=== PATIENT | female | born 1975 | race Caucasian/White ===

== ENCOUNTER 2022-08-21 14:24 | Outpatient (CLI) | payer BC | END 2022-08-21 14:25 | disposition home or self-care (01) | LOC: CSHULT 14:24 | PROVIDERS: ATTEND Psychiatry & Neurology Neurology | DX: R55 Syncope and collapse (principal) | CPT/HCPCS: 93306 ==

== ENCOUNTER 2022-09-04 13:58 | Outpatient (CLI) | payer BC ==
[~2022-09-04 13:58] MED LIST: Magnevist 469MG/ML 20 ML VIAL ONE
== END 2022-09-04 13:59 | disposition home or self-care (01) ==
LOC: CSHMRI 13:58
PROVIDERS: ATTEND Psychiatry & Neurology Neurology
DX: R55 Syncope and collapse (principal); R22.0 Localized swelling, mass and lump, head
CPT/HCPCS: 70553; 93880; A9579

== ENCOUNTER 2022-09-17 15:09 | Outpatient (CLI) | payer BC | END 2022-09-17 15:10 | disposition home or self-care (01) | LOC: CSHMAMMO 15:09 | PROVIDERS: ATTEND Family Medicine | DX: Z12.31 Encounter for screening mammogram for malignant neoplasm of breast (principal); Z80.3 Family history of malignant neoplasm of breast | CPT/HCPCS: 77063; 77067 ==